=== PATIENT | male | born 1975 | race Two or more races ===

== ENCOUNTER 2018-08-11 14:25 | Emergency (ER) | payer SELFPAY ==
[2018-08-11] MEDS ORDERED: MORPHINE 4 MG/ML SDV IVP ONE (15:35)
[2018-08-11] MEDS ORDERED: ONDANSETRON 4 MG/2 ML VIAL IVP ONE (15:35)
[2018-08-11 15:40] LABS: PLATELET COUNT, AUTOMATED 239 K/uL (150-450)
[2018-08-11] MEDS ORDERED: IOPAMIDOL 76% 100 ML INFUS BTL 100 ML ONE (16:02)
--- NOTE | 2018-08-11 16:17 | ER Report ---
History and Physical Time Seen By MD: 15:15 Hx. of Stated Complaint: abdominal pain HPI/ROS CHIEF COMPLAINT: Abdominal pain HISTORY OF PRESENT ILLNESS: 42-year-old English-speaking male presents with abdominal pain on left greater than right that has been constant since 3 AM. Pain is squeezing, radiates to back on both sides, and does not have clear exacerbating or relieving factors. He has had this pain once 3 years ago but does not know what it was. He has nausea but no vomiting. No change in bowel movements. No change in urination. No fevers or chills. he is status post appendectomy, hernia surgery. No pain in testicles/penis REVIEW OF SYSTEMS: Constitutional: No fever, no chills. Eyes: No discharge. ENT: No sore throat. Cardiovascular: No chest pain, no palpitations. Respiratory: No cough, no shortness of breath. Gastrointestinal: above Genitourinary: No hematuria. Musculoskeletal: radiates to back Skin: No rashes. Neurological: No headache. Remainder of the 14 system rev: Yes Allergies: Coded Allergies: No Known Drug Allergies (Unverified , 08/11/18) Home Meds Active Scripts Hydrocodone Bit/Acetaminophen (NORCO 5-325 TABLET) 1 Each Tablet, 1 EACH PO Q6H for PAIN, #10 TAB Prov:RUTH FELDER MD 08/11/18 Amoxicillin/Pot Clav 875-125 Mg Tab (AUGMENTIN 875-125 TABLET) 1 Each Tablet, 1 TAB PO Q12H for 10 Days, #20 TAB Prov:RUTH FELDER MD 08/11/18 Reviewed Nurses Notes: Yes Constitutional Vital Sign - Last 24 Hours 08/11/18 08/11/18 08/11/18 08/11/18 14:52 14:56 15:00 15:30 Temp 98.9 Pulse 80 76 84 Resp 18 13 11 B/P (MAP) 148/97 156/92 (113) 135/85 (102) 136/83 (100) Pulse Ox 93 86 94 O2 Delivery Room Air 08/11/18 08/11/18 08/11/18 08/11/18 16:30 17:00 17:30 18:00 Pulse 77 Resp 15 9 B/P (MAP) 158/94 (115) 148/92 (110) 133/86 (102) 120/73 (89) Pulse Ox 85 92 96 94 Physical Exam General Appearance: The patient is alert, has no immediate need for airway protection and no signs of toxicity. [ ] Eyes: Pupils equal and round no pallor or injection. ENT, Mouth: Mucous membranes are moist. Respiratory: There are no retractions, lungs are clear to auscultation. Cardiovascular: Regular rate and rhythm. [ ] Gastrointestinal: ttp throughout abd; worse bilat lower quadrants. No peritoneal sgs. Neurological: alert, oriented x 3, [place]one Skin: Warm and dry, no rashes. Musculoskeletal: Extremities are nontender, nonswollen and have full range of motion. DIFFERENTIAL DIAGNOSIS: After history and physical exam differential diagnosis was considered for abdominal pain including but not limited to appendicitis, cholecystitis, gastritis and urinary tract infection. Medical Decision Making Data Points Result Diagram: 08/11/18 1506 08/11/18 1506 Laboratory Hematology Test 08/11/18 15:06 08/11/18 17:30 Red Blood Count 5.30 M/uL (4.00-5.60) Mean Corpuscular Volume 91.2 fL (80.0-96.0) Mean Corpuscular Hemoglobin 31.4 pg (26.0-33.0) Mean Corpuscular Hemoglobin Concent 34.4 g/dL (32.0-36.0) Red Cell Distribution Width 12.8 % (11.5-14.5) Mean Platelet Volume 8.8 fL (7.2-11.1) Neutrophils (%) (Auto) 89.7 % (39.4-72.5) Lymphocytes (%) (Auto) 6.7 % (17.6-49.6) Monocytes (%) (Auto) 3.2 % (4.1-12.4) Eosinophils (%) (Auto) 0.1 % (0.4-6.7) Basophils (%) (Auto) 0.3 % (0.3-1.4) Nucleated RBC Relative Count (auto) 0.1 /100WBC Neutrophils # (Auto) 12.5 K/uL (2.0-7.4) Lymphocytes # (Auto) 0.9 K/uL (1.3-3.6) Monocytes # (Auto) 0.4 K/uL (0.3-1.0) Eosinophils # (Auto) 0.0 K/uL (0.0-0.5) Basophils # (Auto) 0.0 K/uL (0.0-0.1) Nucleated RBC Absolute Count (auto) 0.01 K/uL Sodium Level 137 mmol/L (137-145) Potassium Level 3.4 mmol/L (3.5-5.0) Chloride Level 102 mmol/L (98-107) Carbon Dioxide Level 23 mmol/L (22-30) Blood Urea Nitrogen 15 mg/dl (9-21) Creatinine 0.90 mg/dl (0.66-1.25) Glomerular Filtration Rate Calc > 60.0 Random Glucose 108 mg/dl (75-110) Calcium Level 9.3 mg/dl (8.4-10.2) Total Bilirubin 0.9 mg/dl (0.2-1.3) Aspartate Amino Transf (AST/SGOT) 34 U/L (0-35) Alanine Aminotransferase (ALT/SGPT) 51 U/L (0-56) Alkaline Phosphatase 75 U/L (0-126) Total Protein 8.1 g/dl (6.3-8.2) Albumin 4.7 g/dl (3.5-5.0) Urine Color Yellow Urine Clarity Clear Urine pH 5.0 pH (4.8-9.5) Urine Specific [place] S3 Urine Protein Negative mg/dL (NEGATIVE) Urine Glucose (UA) Negative mg/dL (NEGATIVE) Urine Ketones 20 mg/dL (NEGATIVE) Urine Blood Small (NEGATIVE) Urine Nitrite Negative (NEGATIVE) Urine Bilirubin Negative (NEGATIVE) Urine Urobilinogen Negative mg/dL (0.2-1.9) Urine Leukocyte Esterase Negative (NEGATIVE) Urine RBC None /HPF (0-2/HPF) Urine WBC <1 /HPF (0-5/HPF) Urine Squamous Epithelial Cells None /LPF (</=FEW) Urine Bacteria Negative /HPF (NONE-FEW) Urine Mucus None /HPF (NONE-FEW) Chemistry Test 08/11/18 15:06 08/11/18 17:30 White Blood Count 13.9 k/uL (4.5-11.0) Red Blood Count 5.30 M/uL (4.00-5.60) Hemoglobin 16.6 g/dL (14.0-18.0) Hematocrit 48.3 % (42.0-52.0) Mean Corpuscular Volume 91.2 fL (80.0-96.0) Mean Corpuscular Hemoglobin 31.4 pg (26.0-33.0) Mean Corpuscular Hemoglobin Concent 34.4 g/dL (32.0-36.0) Red Cell Distribution Width 12.8 % (11.5-14.5) Platelet Count 239 K/uL (150-450) Mean Platelet Volume 8.8 fL (7.2-11.1) Neutrophils (%) (Auto) 89.7 % (39.4-72.5) Lymphocytes (%) (Auto) 6.7 % (17.6-49.6) Monocytes (%) (Auto) 3.2 % (4.1-12.4) Eosinophils (%) (Auto) 0.1 % (0.4-6.7) Basophils (%) (Auto) 0.3 % (0.3-1.4) Nucleated RBC Relative Count (auto) 0.1 /100WBC Neutrophils # (Auto) 12.5 K/uL (2.0-7.4) Lymphocytes # (Auto) 0.9 K/uL (1.3-3.6) Monocytes # (Auto) 0.4 K/uL (0.3-1.0) Eosinophils # (Auto) 0.0 K/uL (0.0-0.5) Basophils # (Auto) 0.0 K/uL (0.0-0.1) Nucleated RBC Absolute Count (auto) 0.01 K/uL Glomerular Filtration Rate Calc > 60.0 Calcium Level 9.3 mg/dl (8.4-10.2) Total Bilirubin 0.9 mg/dl (0.2-1.3) Aspartate Amino Transf (AST/SGOT) 34 U/L (0-35) Alanine Aminotransferase (ALT/SGPT) 51 U/L (0-56) Alkaline Phosphatase 75 U/L (0-126) Total Protein 8.1 g/dl (6.3-8.2) Albumin 4.7 g/dl (3.5-5.0) Urine Color Yellow Urine Clarity Clear Urine pH 5.0 pH (4.8-9.5) Urine Specific [place] S3 Urine Protein Negative mg/dL (NEGATIVE) Urine Glucose (UA) Negative mg/dL (NEGATIVE) Urine Ketones 20 mg/dL (NEGATIVE) Urine Blood Small (NEGATIVE) Urine Nitrite Negative (NEGATIVE) Urine Bilirubin Negative (NEGATIVE) Urine Urobilinogen Negative mg/dL (0.2-1.9) Urine Leukocyte Esterase Negative (NEGATIVE) Urine RBC None /HPF (0-2/HPF) Urine WBC <1 /HPF (0-5/HPF) Urine Squamous Epithelial Cells None /LPF (</=FEW) Urine Bacteria Negative /HPF (NONE-FEW) Urine Mucus None /HPF (NONE-FEW) Urinalysis Test 08/11/18 17:30 Urine Color Yellow Urine Clarity Clear Urine pH 5.0 pH (4.8-9.5) Urine Specific [place] S3 Urine Protein Negative mg/dL (NEGATIVE) Urine Glucose (UA) Negative mg/dL (NEGATIVE) Urine Ketones 20 mg/dL (NEGATIVE) Urine Blood Small (NEGATIVE) Urine Nitrite Negative (NEGATIVE) Urine Bilirubin Negative (NEGATIVE) Urine Urobilinogen Negative mg/dL (0.2-1.9) Urine Leukocyte Esterase Negative (NEGATIVE) Urine RBC None /HPF (0-2/HPF) Urine WBC <1 /HPF (0-5/HPF) Urine Squamous Epithelial Cells None /LPF (</=FEW) Urine Bacteria Negative /HPF (NONE-FEW) Urine Mucus None /HPF (NONE-FEW) ED Course/Re-evaluation ED Course 42 y/o m presents with l sided abdominal pain; exam is most c/w diverticulitis/colitis, though pt has not had change in stool. CT is equivocal; rpt exam shows improved pain but continued tenderness. I think most c/w colitis; will d/c wtih augmentin, pain control. Decision to Disposition Date: Aug 11, 2018 Decision to Disposition Time: 18:13 Depart Departure Latest Vital Signs Vital Signs Date Time Temp Pulse Resp B/P (MAP) Pulse Ox O2 Delivery O2 Flow Rate FiO2 08/11/18 18:00 120/73 (89) 94 08/11/18 17:00 9 08/11/18 16:30 77 08/11/18 14:52 98.9 Room Air Impression: Primary Impression: Colitis Condition: Improved Disposition: HOME OR SELF-CARE Referrals: [facility] 2 Days New Scripts Hydrocodone Bit/Acetaminophen (NORCO 5-325 TABLET) 1 Each Tablet 1 EACH PO Q6H for PAIN, #10 TAB Prov: RUTH FELDER MD 08/11/18 Amoxicillin/Pot Clav 875-125 Mg Tab (AUGMENTIN 875-125 TABLET) 1 Each Tablet 1 TAB PO Q12H for 10 Days, #20 TAB Prov: RUTH FELDER MD 08/11/18 Patient Instructions: Infectious Colitis (ED) Additional Instructions: Dirk discutimos, la tomografa no muestra claramente lo que est sucediendo, alma probablemente tengas colitis. [place] el antibitico (Augmentin) dos veces al da hasta que se haya marilyn. Asael ibuprofeno 600mg cada 8 horas para el dolor; Si tiene un dolor peor, puede asael la oxicodona segn las indicaciones. Si bri oxicodona, debe comprar un ablandador de heces dirk Miralax en la farmacia. Por favor regrese inmediatamente si usted es peor. RUTH FELDER MD Aug 11, 2018 16:17
--- NOTE | 2018-08-11 16:35 | RADIOLOGY IMAGING REPORT ---
FACILITY: [facility] [place] PATIENT NAME: Dixon Choi : 1975 MR: [id number] V: [id number] EXAM DATE: ORDERING PHYSICIAN: RUTH FELDER TECHNOLOGIST: [place] [facility] [place] : 1975 Visit/Account:[id number] Date of Sevice: 08/11/2018 EXAMINATION: CT Abdomen and Pelvis With Contrast 08/11/2018 3:32 PM HISTORY: ttp, llq TECHNIQUE: Spiral scan was through the abdomen and pelvis during injection of nonionic iodinated in travenous contrast. Contrast: 85 mL of IV Isovue 370. One of the following dose optimization techniques was utilized in the performance of this exam: Autom ated exposure control; adjustment of the mA and/or kV according to the patient's size; or use of an i terative reconstruction technique. Specific details can be referenced in the facility's radiology C T exam operational policy. COMPARISON STUDIES: none. FINDINGS: Liver / biliary: Fatty liver with subtle focal sparing in adjacent to the bud. More focally intense fatty infiltration or benign perfusional variation incidentally present in the left lobe along the f issure for ligamentum teres. No significant acute finding. Pancreas: negative Spleen: negative Adrenal glands: negative Kidneys / retroperitoneum: Normal and symmetric enhancement. No stone or obstruction. Subtle haziness adjacent to the upper left ureter. Pelvic structures: negative Bowel / peritoneum / mesenteries: Thickened appearance of the descending colon but it is collapsed an d there are no clear periserosal acute inflammatory changes of colitis. The sigmoid which is better d istended with some fecal material is not thick-walled. No significant diverticular change. Appendix i s small or absent. No ileocecal area inflammatory change. Small bowel and stomach are unremarkable. N o ascites or free air. Vessels: negative Musculoskeletal / Body wall: negative Lymph node assessment: negative Lower chest: negative IMPRESSION: 1. Descending colon has a thick-walled appearance but is collapsed think may account for that, withou t other clear periserosal inflammatory features of colitis. No significant focal diverticular change. 2. Subtle haziness adjacent to the proximal left ureter. There is no stone or any other obstructing p rocess evident. Features could be residual from recently passed stone. UTI is probably less likely si nce there is no evident urothelial enhancement. Report Dictated By: Cyril Del Rio MD at 08/11/2018 4:21 PM Report E-Signed By: Cyril Del Rio MD at 08/11/2018 4:32 PM WSN:[id number]
[2018-08-11] MEDS ORDERED: NS(*) 0.9% 1000 ML BAG 1,000 ML IV ONE (17:00)
[2018-08-11 18:00] VITALS: BP 120/73
[2018-08-11] MEDS ORDERED: KETOROLAC 15 MG/ML VIAL IVP ONE (18:15)
[2018-08-11] MEDS ORDERED: AMOX/CLAV 875 MG TAB PO ONE (18:15)
[2018-08-11] MEDS ORDERED: AMOX-559 PO (18:18)
[2018-08-11] MEDS ORDERED: HYDR-653 PO (18:18)
== END 2018-08-11 18:30 | disposition home or self-care (01) ==
LOC: ER 15:08
DX: K52.9 Noninfective gastroenteritis and colitis, unspecified (principal)
CPT/HCPCS: 74177; 81001; 85025; 96374; 96375; 99284; J1885; J2270; J2405; J7030; Q9967; 82040; 82247; 82310; 82374; 82435; 82565; 82947; 84075; 84132; 84155; 84295; 84450; 84460; 84520